=== PATIENT | female | born 1960 | race Caucasian/White ===

== ENCOUNTER → 2021-12-14 13:20 | Outpatient (CLI) | payer BC, SELFPAY ==
--- NOTE | ~2021-12-14 | XR_ITS ---
XR chest 2V 12/14/2021 13:39 Indication: Dyspnea Procedure: 2 view chest Comparison: 06/13/2014 Findings: Moderate cardiomegaly. No focal air space disease, pulmonary edema, pleural effusion or roseline pected pneumothorax. No acute osseous abnormality. There are degenerative changes of the shoulders. Impression: 1: No acute cardiopulmonary disease. 2: Cardiomegaly. Reviewed, dictated and finalized at location A. Impression: 1: No acute cardiopulmonary disease. 2: Cardiomegaly.
== END ==
PROVIDERS: PCP Physician Assistant; Visit Provider Physician Assistant
DX: R06.00 Dyspnea, unspecified (principal); I51.7 Cardiomegaly
CPT/HCPCS: 71046

== ENCOUNTER 2024-01-27 19:41 | Emergency (ER) | payer BC, SELFPAY ==
[2024-01-27 19:45] VITALS: BP 100/66; PULSE 91; RESP 14; TEMP 37.8; O2SAT 100
--- NOTE | 2024-01-27 19:49 | ECG_ITS ---
Test Date: 2024-01-27 19:56:21 Measurements Intervals [place] Rate: 92 P: 30 OR: 142 QRS: -68 QRSD: 106 T: 52 QT: 323 QTc: 400 Interpretive Statements SINUS RHYTHM WITH OCCASIONAL VENTRICULAR PREMATURE COMPLEXES LEFT ANTERIOR FASCICULAR BLOCK LOW QRS VOLTAGE IN PRECORDIAL LEADS ANTEROSEPTAL INFARCT, AGE INDETERMINATE BASELINE ARTIFACT- I, II, III, AVR, AVL, AVF, V1-V6 ABNORMAL ECG No previous ECG available for comparison Electronically Signed On 01-28-2024 07:09:40 CDT by Nathan Bui D.O.
--- NOTE | 2024-01-27 20:52 | ED.GENADULT ---
HPI - General Adult General Chief complaint: Dizziness Stated complaint: COVID+, LOW BPS Time Seen by Provider: 01/27/24 20:33 History of Present Illness HPI narrative: Patient is a 63-year-old female who presents emergency department with chief complaint of febrile illness and COVID. Patient has history of congestive heart failure reports that she has been feeling kind of weak and run down went to urgent care thinking that she had a sinus infection reports she has severe pressure in her sinuses pain into her T the patient cc feels just like whenever she has had bacterial sinusitis before in the past. The patient reports she received some fluids by EMS and is feeling much better at this time Related Data Allergies Allergy/AdvReac Type Severity Reaction Status Date / Time No Known Allergies Allergy Mild Verified 05/20/09 11:58 Review of Systems Review of Systems: A 10 system review of systems was completed on the patient and is negative except for what is stated in the HPI. Nursing and ancillary documentation was reviewed. [facility] Family History Family History Father Hypertension, Onset Age: 60 Family history of coronary artery disease, Onset Age: 60 Mother Family history of arthritis Family history of emphysema Social History Social History Smoking status: Never smoker Second hand tobacco smoke exposure: No Alcohol intake: never Exam Narrative: GENERAL: Well-appearing, well-nourished, and in no acute distress. HEAD: Normocephalic, atraumatic. EYES: PERRLA and EOMI. ENT: Nares clear, no rhinorrhea or epistaxis. Mucous membranes moist. NECK: Supple. CHEST: Clear to auscultation. No respiratory distress. HEART: Regular rate and rhythm. No murmur heard. Normal peripheral pulses. ABDOMEN: Soft, nontender, nondistended, normal active bowel sounds. EXTREMITIES: Normal range of motion. No edema. SKIN: Warm, dry, no rash. NEURO: No focal deficits. Alert and oriented x3. PSYCH: Normal mood and affect. Course Vital Signs Vital signs: Vital Signs Temperature 37.8 C H 01/27/24 19:45 Pulse Rate 91 01/27/24 19:45 Respiratory Rate 14 01/27/24 19:45 Blood Pressure 100/66 01/27/24 19:45 Pulse Oximetry 100 01/27/24 19:45 Oxygen Delivery Room Air 01/27/24 19:45 Temperature 37.8 C H 01/27/24 19:45 Pulse Rate 91 01/27/24 19:45 Respiratory Rate 14 01/27/24 19:45 Blood Pressure 100/66 01/27/24 19:45 Pulse Oximetry 100 01/27/24 19:45 Oxygen Delivery Room Air 01/27/24 19:45 Medical Decision Making MDM Narrative Medical decision making narrative: Differential diagnosis includes COVID-19, bacterial sinusitis, Patient is currently asymptomatic and feeling much better. The patient would like outpatient treatment. The patient will be started on prednisone Augmentin Tessalon and given an inhaler. Vital Signs Vital Signs: Vital Signs Temperature 37.8 C H 01/27/24 19:45 Pulse Rate 91 01/27/24 19:45 Respiratory Rate 14 01/27/24 19:45 Blood Pressure 100/66 01/27/24 19:45 Pulse Oximetry 100 01/27/24 19:45 Oxygen Delivery Room Air 01/27/24 19:45 Temperature 37.8 C H 01/27/24 19:45 Pulse Rate 91 01/27/24 19:45 Respiratory Rate 14 01/27/24 19:45 Blood Pressure 100/66 01/27/24 19:45 Pulse Oximetry 100 01/27/24 19:45 Oxygen Delivery Room Air 01/27/24 19:45 Discharge Plan Discharge Clinical Impression: Acute bacterial sinusitis, COVID-19 Patient Disposition: Home, Self-Care Condition: Stable Instructions: Antibiotic Form, Sinusitis (ED), COVID-19 (Coronavirus Disease 2019) (ED) Prescriptions: New amoxicillin-pot clavulanate 875-125 mg tablet 1 tablet PO Q12H 10 Days Qty: 20 0RF albuterol sulfate 90 mcg/actuation HFA aerosol inhaler 2 puff inhalation QID PRN (Reason:
[2024-01-27] MEDS: AMOXICILLIN/CLAVULANATE K 875-125 MG TAB 1 TABLET PO (21:02)
[2024-01-27] MEDS: predniSONE 20 MG TABLET 60 MG PO (21:02)
[2024-01-27] MEDS: BENZONATATE 100 MG CAPSULE 200 MG PO (21:03)
[2024-01-27 21:13] VITALS: BP 110/80; PULSE 93; RESP 20; O2SAT 100
== END 2024-01-27 21:14 | disposition home or self-care (01) ==
PROVIDERS: Emergency Provider Emergency Medicine; PCP Physician Assistant
DX: J01.90 Acute sinusitis, unspecified (principal); U07.1 COVID-19
CPT/HCPCS: 93005; 99283; A9270; J7512